=== PATIENT | male | born 1960 | race Caucasian/White ===

== ENCOUNTER 2019-12-14 03:24 | Emergency (ER) | payer OTHER ==
[~2019-12-14] VITALS: Ht 165.1 cm; Wt 59.0 kg
[2019-12-14 03:33] VITALS: BP 156/98
--- NOTE | 2019-12-14 03:36 | NUR ---
DR. GALVEZ AT BEDSIDE FOR MEDICAL SCREENING EXAM. PT UNCOOPERATIVE, VERBALLY AGGRESSIVE. REFUSING CARE.
== END 2019-12-14 03:41 ==
LOC: ER 03:24
DX: Z53.21 Procedure and treatment not carried out due to patient leaving prior to being seen by health care provider (principal)